=== PATIENT | male | born 1985 | race African-American/Black ===

== ENCOUNTER 2016-12-05 19:07 | Outpatient (CLI) | payer SELFPAY ==
--- NOTE | 2016-12-05 20:23 | RAD ---
RIGHT ANKLE THREE VIEWS: 12/05/16 INDICATION: Football injury two months prior with pain. FINDINGS: There is heterotopic density adjacent the fibular tip, corticated appearing. No overlying soft tissu e swelling is seen. Ankle mortise is symmetric. IMPRESSION: Corticated heterotopic density adjacent the fibular tip suggesting sequela from prior injury. No ove rlying soft tissue swelling of significance visualized. Correlate with physical exam. POS: DEB
== END 2016-12-05 19:08 | disposition home or self-care (01) ==
LOC: MADRAD 19:07
PROVIDERS: ATTEND Family Medicine
DX: M25.571 Pain in right ankle and joints of right foot (principal)

== ENCOUNTER 2017-01-09 16:14 | Outpatient (CLI) | payer OTHER, SELFPAY ==
--- NOTE | 2017-01-09 17:41 | RAD ---
CHEST PA AND LATERAL: Date: 01/09/17 HISTORY: 31-year-old male with pleuritic chest pain for 1 day. COMPARISON: 12/29/13. FINDINGS: Heart size is normal. The lungs are clear. IMPRESSION: No acute intrathoracic disease. Stable from prior study. POS: DEB
== END 2017-01-09 16:15 | disposition home or self-care (01) ==
LOC: MADRAD 16:14
PROVIDERS: ATTEND Family Medicine
DX: R07.1 Chest pain on breathing (principal)
CPT/HCPCS: 71020